=== PATIENT | female | born 1945 | race Caucasian/White ===

== ENCOUNTER 2019-07-31 14:39 | Emergency (ER) | payer MEDICARE, OTHER ==
[~2019-07-31] VITALS: Ht 157.5 cm; Wt 68.0 kg
[~2019-07-31 14:39] MED LIST: AMITRIPTYLINE H25 MG PO; HYDROCODON-ACE1 EAC8 PO; MECLIZINE HCL25 MG PO; OMEPRAZOLE20 MG PO; PROPRANOLOL HCL80 M1 PO
[2019-07-31] MEDS ORDERED: GABAPENTIN100 MG PO (14:50)
--- NOTE | 2019-08-01 07:49 | EKG ---
[facility] [address] [facility] [place], [place] [address] Signed Normal sinus rhythm Normal ECG No previous ECGs available Confirmed by IRAIS HARRELL MD ([id number]) on 08/01/2019 7:49:43 AM Electronically Signed By: IRAIS HARRELL MD 08/01/19 0749 PATIENT NAME: SOLISSHERIF Electrocardiogram DATE OF : 49 PHYSICIAN: IRAIS HARRELL MD REPORT #: [id number] REPORT IS CONFIDENTIAL AND NOT TO BE RELEASED WITHOUT AUTHORIZATION
== END 2019-07-31 17:16 | disposition home or self-care (01) ==
LOC: ED 14:39
DX: M32.9 Systemic lupus erythematosus, unspecified (principal); Z88.0 Allergy status to penicillin; Z88.5 Allergy status to narcotic agent; Z79.899 Other long term (current) drug therapy
CPT/HCPCS: 71046; 80053; 84484; 85025; 85610; 93005; 93010; 96374; 99285-25; J2930

== ENCOUNTER 2024-01-31 14:33 | Emergency (ER) | payer MEDICARE, OTHER ==
[~2024-01-31] VITALS: Ht 157.5 cm; Wt 59.8 kg
[~2024-01-31 14:33] MED LIST changes: +DOXYCYCLINE HY100 MG PO; +GABAPENTIN100 MG PO; +LOVASTATIN20 MG PO; +RISEDRONATE SOD35 M1 PO; +VITAMIN D325 MCG
[2024-01-31] MEDS ORDERED: LOSARTAN POTASS25 MG PO (14:43)
[2024-01-31] MEDS ORDERED: NITROGLYCERIN 0.4 MG SUBL SL PRN (14:45)
[2024-01-31] MEDS ORDERED: ASPIRIN 81 MG CHEW PO ONE (14:45)
[2024-01-31 14:57] LABS: BASOPHILS 0.9 % (0-2); EOSINOPHILS 2.3 % (0-6); HEMOGLOBIN 13.9 g/dL (12.0-18.0); LYMPHOCYTES 16.9 % (24-44); MCH 30.3 (27-36); MCHC 33.2 g/dl (30-36); MCV 91.3 fl (81-99); MONOCYTES 7.8 % (0-12); NEUTROPHILS 72.1 % (39-80); PLATELET COUNT 198 K/uL (140-440); RDW 15.4 (10.5-15.0)
[2024-01-31 15:13] LABS: ALBUMIN 3.2 g/dL (3.4-5.0); ALBUMIN/GLOBULIN RATIO 0.91 (1.1-2.4); ANION GAP 10.8 (7-21); BILIRUBIN, TOTAL 0.4 ng/dL (0.2-1.0); BUN/CREATININE RATIO 27.58 (6.0-28.6); CALCIUM 8.8 mg/dL (8.5-10.1); CREATININE, SERUM 0.87 mg/dL (0.55-1.02); POTASSIUM 3.8 mmol/L (3.5-5.1); PROTEIN, TOTAL 6.7 g/dL (6.4-8.2)
[2024-01-31] MEDS ORDERED: DOXYCYCLINE HY100 MG PO (16:34)
[2024-01-31] MEDS ORDERED: PREDNISONE20 MG PO (16:34)
[2024-01-31] MEDS ORDERED: VENTOLIN HFA18 GM INH (16:34)
[2024-01-31 16:50] VITALS: BP 188/76
--- NOTE | 2024-01-31 21:58 | EKG ---
[facility] [address] [facility] [place] [address] Signed Sinus bradycardia Otherwise normal ECG When compared with ECG of 31-JUL-2019 14:44, T wave amplitude has increased in Anterior leads QT has shortened Confirmed by VIC BOBBY MD ([id number] on 01/31/2024 9:58:32 PM Electronically Signed By: VIC BOBBY 01/31/24 [id number] PATIENT NAME: SHERIF SOLIS Electrocardiogram DATE OF : 49 PHYSICIAN: VIC BOBBY REPORT #: [id number] REPORT IS CONFIDENTIAL AND NOT TO BE RELEASED WITHOUT AUTHORIZATION
== END 2024-01-31 16:46 | disposition home or self-care (01) ==
LOC: ED 14:33
PROVIDERS: Emergency Medicine
DX: J18.0 Bronchopneumonia, unspecified organism (principal); I10 Essential (primary) hypertension; Z88.0 Allergy status to penicillin; Z88.5 Allergy status to narcotic agent; Z79.899 Other long term (current) drug therapy
CPT/HCPCS: 36415; 71045; 71260; 80053; 83690; 83735; 84484; 85025; 85379; 93005; 93010; 99285-25; A9270; Q9967